=== PATIENT | female | born 2000 | race African-American/Black ===

== ENCOUNTER 2020-03-17 09:58 | Emergency (ER) | payer OTHER ==
[2020-03-17 10:07] VITALS: BP 137/83; PULSE 81; TEMP 97.8; BMI 24.7
== END 2020-03-17 11:11 | disposition home or self-care (01) ==
LOC: JERFT 09:58
DX: S61.304A Unspecified open wound of right ring finger with damage to nail, initial encounter (principal)
CPT/HCPCS: 99282-25